=== PATIENT | female | born 1960 | race Caucasian/White ===

== ENCOUNTER → 2023-11-26 14:00 | Outpatient (REF) | payer OTHER, SELFPAY | LOC: RAD 14:00 | PROVIDERS: ATTENDING PHYSICIAN Emergency Medicine | DX: K59.00 Constipation, unspecified (principal); Z86.010 Personal history of colon polyps; Z80.0 Family history of malignant neoplasm of digestive organs; R19.4 Change in bowel habit; R19.5 Other fecal abnormalities | CPT/HCPCS: 74177; Q9967 ==

== ENCOUNTER → 2024-08-01 10:11 | Outpatient (REF) | payer OTHER, SELFPAY | LOC: HWWDC 10:11 | PROVIDERS: ATTENDING PHYSICIAN Family Medicine; FAMILY PHYSICIAN Family Medicine; REFERRING PHYSICIAN Internal Medicine Endocrinology, Diabetes & Metabolism | DX: M81.0 Age-related osteoporosis without current pathological fracture (principal); Z12.31 Encounter for screening mammogram for malignant neoplasm of breast | CPT/HCPCS: 77063; 77067; 77080 ==

== ENCOUNTER 2025-03-06 08:16 | Emergency (ER) | payer OTHER, SELFPAY ==
[2025-03-06 08:17] VITALS: BP 199/95
[2025-03-06 08:25] VITALS: BMI 31.2
--- NOTE | 2025-03-06 08:33 | ED.GENMED ---
History of Present Illness
General
Chief Complaint: Head Injury
Source: patient
Exam Limitations: none
Time Seen by Provider: 03/06/25 08:25
History of Present Illness
History of Present Illness:
64-year-old female not anticoagulated presents with worsening headache and cognitive fog after a fall and head strike 2 days ago. She states he been sleeping a lot over the past 2 days. She is nauseous and no pressure within her head. She denies
neck pain chest pain shortness of breath. She is treated for hypertension. No other complaints at this time
Past History
Past History
ED Past Medical History: GERD, HTN and Other (OA)
ED Past Surgical History:
Social History
Tobacco: Non-smoker
Living: with family
Employment: Employed
Family History
Family History: Negative Early CAD
Phy Exam
Physical Exam
Physical Exam:
General: Well-appearing female no acute respiratory distress
HEENT normocephalic pupils equal round reactive to light extraocular's are intact no obvious scalp abrasion or hematoma
Neurologic exam normal gait conversing appropriately good strength to the upper and lower extremities good sensation.
Musculoskeletal exam: Spine is nontender good range of motion all extremities
Course
Orders/Labs/Results
Orders:
Orders
03/06/25 08:32
CT Head W/o Iv Contrast Urgent
Comment:
Reason For Exam: head injury
Vital Signs
Initial and Last Documented VS:
Initial Vital Signs
Temp Pulse Resp BP Pulse Ox
98.7 F 59 16 199/95 98
03/06/25 08:17 03/06/25 08:17 03/06/25 08:17 03/06/25 08:17 03/06/25 08:17
Last Documented Vital Signs
Temp Pulse Resp BP Pulse Ox
98.7 F 59 16 199/95 98
03/06/25 08:17 03/06/25 08:17 03/06/25 08:17 03/06/25 08:17 03/06/25 08:35
MDM/Problems Addressed
Differential Diagnosis Includes:
Worsening headache, pressure nausea since fall with head strike 2 days ago. Consider concussion versus intracranial hemorrhage versus contusion
CT pending
*Pulse Oximetry
SaO2: 98
Oxygen Mode of Delivery: Room air
Patient hypoxic: no
*Critical Care Note
Total Time (30-74mins, 75-104mins- exclusive of procedures): Not Applicable
Update Note
Update Note:
CT of the head negative for acute findings. Patient reassured. Suspect underlying concussive syndrome. Return precautions given. Stable for discharge
ED Attending Note
-
Portions of this chart may have been created with voice recognition software.� Occasional wrong word or��sound alike� substitutions may have occurred due to the inherent limitations of voice recognition software.
Discharge Plan
Departure
Patient Disposition: Home (Routine Discharge)
Date of Disposition: 03/06/25
Time of Disposition: 09:06
Patient with high blood pressure during this ER visit?: No
Discharge Problem:
Concussion
Instructions: Concussion, Adult (DC)
Activity Restrictions/Additional Instructions:
Rest. Use ibuprofen or Tylenol for pain. Avoid excessive physical or cognitive activity. Turn if worse otherwise follow-up with your doctor
Interventions
Interventions:
*Risk Screen - Suicide Last Done: 03/06/25 08:17
*General Assessment Last Done: 03/06/25 08:24
*Neglect/Abuse Screening Last Done: 03/06/25 08:17
*ED- Fall Risk Assessment Last Done: 03/06/25 08:24
*ED COVID-19 Vaccine History Last Done: 03/06/25 08:24
ED- Neurological Assessment Last Done: 03/06/25 08:24
ED-Skin Assessment Last Done: 03/06/25 08:28
Discharge Date and Time
Print Language: [email or web address]
[2025-03-06 09:09] VITALS: BP 165/83
== END 2025-03-06 09:22 | disposition home or self-care (01) ==
LOC: EMR 08:16
PROVIDERS: EMERGENCY PHYSICIAN Emergency Medicine; FAMILY PHYSICIAN Family Medicine
DX: S06.0XAA Concussion with loss of consciousness status unknown, initial encounter (principal); W19.XXXA Unspecified fall, initial encounter; I10 Essential (primary) hypertension
CPT/HCPCS: 99284; 70450

== ENCOUNTER → 2025-07-18 07:10 | Outpatient (REF) | payer OTHER, SELFPAY | LOC: HWRAD 07:10 | PROVIDERS: ATTENDING PHYSICIAN Family Medicine | DX: R14.0 Abdominal distension (gaseous) (principal); R10.11 Right upper quadrant pain | CPT/HCPCS: 76700 ==